=== PATIENT | male | born 1990 | race Caucasian/White ===

== ENCOUNTER → 2025-08-17 14:13 | Outpatient (CLI) | payer OTHER, SELFPAY ==
--- NOTE | 2025-08-17 14:15 | DI.RAD.S_ITS ---
PROCEDURE: XR HAND LT MIN 3V INDICATIONS: fracture TECHNIQUE: 3 views of the left hand(s) acquired. COMPARISON: None. FINDINGS: Comminuted fracture of the base of the left 1st metacarpal with intra-articular extension to the 1st carpal-metacarpal joint. No radiographic evidence dislocation or high attenuation foreign body. IMPRESSION: Left 1st metacarpal fracture as discussed above. Follow-up is needed. Dictated by: Miguel Angel Jara M.D. on 08/17/2025 at 14:47 Approved by: Miguel Angel Jara M.D. on 08/17/2025 at 14:48
== END ==
PROVIDERS: PCP Family Medicine; Referring Provider Chiropractor; Visit Provider Chiropractor
DX: S60.222A Contusion of left hand, initial encounter (principal); S62.232A Other displaced fracture of base of first metacarpal bone, left hand, initial encounter for closed fracture
CPT/HCPCS: 73130